=== PATIENT | male | born 1955 | race Caucasian/White ===

== ENCOUNTER 2018-01-17 12:43 | Emergency (ER) | payer OTHER ==
[2018-01-17] MEDS: IBUPROFEN 600 MG TAB PO (15:22)
== END 2018-01-17 17:51 | disposition home or self-care (01) ==
LOC: FTE 12:43
DX: M54.2 Cervicalgia (principal); M54.5 Low back pain; I10 Essential (primary) hypertension; E11.9 Type 2 diabetes mellitus without complications; Z79.82 Long term (current) use of aspirin
CPT/HCPCS: 72040; 72100; 99283-25